=== PATIENT | male | born 1965 | race Caucasian/White ===

== ENCOUNTER 2017-02-10 19:28 | Emergency (ER) | payer MEDICAID, MEDICARE ==
[2017-02-10] MEDS ORDERED: KETOROLAC TROMETHAMINE 60 MG/2 ML VIAL IM ONE ×2 (19:49→19:56)
--- OUTSIDE RECORDS SUMMARY | 2017-02-10 19:58 | XMS REPORT | Continuity of Care Document ---
:1965 Author Organization [facility] ([facility]) Address [place] [address] Phone [phone] Care Team Providers Name Role Phone Navarro Arzola Primary Care Provider [phone] Source Comments This disclosure is being made pursuant to the Care Everywhere program, applicable federal and state laws, and may not contain all informaitonavailable regarding this patient.[facility] ([facility]) Active Allergies and Adverse Reactions Allergen Noted Date Severity Reactions Comments Bee Stings Loss of Consciousness,Respiratory Distress,Urticaria (Hives) Carbamazepine Urticaria (Hives) Current Medications Prescription Sig. Disp. Refills Start Date End Date Status albuterol (VENTOLIN use 2 Puffs by 4 g 11 02/14/2009 Active HFA) 90 mcg/Actuation inhalation every 4 inhaler hours as needed. Indications: Bronchial Asthma gabapentin take 3 Caps by mouth 3 90 Cap 5 02/14/2009 Active (NEURONTIN) 300 mg times daily. For capsule neuropathic pain, Indications: Neuropathic Pain citalopram (CELEXA) take 1 Tab by mouth 60 Tab 0 10/28/2009 Active 40 mg tablet daily. Indications: Depression hydrocodone-acetamino Take 1 Tab by mouth Active phen (VICODIN ES) every 4 hours. 7.5-750 mg per tablet Indications: Pain zolpiDEM (AMBIEN) 10 Take 10 mg by mouth at Active mg tablet bedtime as needed. diltiazem (CARDIZEM) Take 60 mg by mouth 2 Active 60 mg tablet times daily. carvedilol (COREG) Take 1 Tab by mouth 2 60 Tab 1 01/02/2012 Active 6.25 mg tablet times daily with meals. Indications: Hypertension aspirin 81 mg EC Take 81 mg by mouth Active tablet daily. Indications: Antithrombotic medication for right FA stump oxyCODONE-acetaminoph Take 1 Tab by mouth 30 Tab 0 01/18/2012 Active en 5-325 mg per every 4 hours as tablet needed. 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) 12/30/2007 Major depressive disorder, recurrent episode, severe, without mention of 10/09 psychotic behavior Other postoperative infection 09/26/2007 Depressive disorder, not elsewhere classified 09/18/2007 Pain in limb 09/07/2007 Social History Tobacco Use Types Packs/Day Years Used Date Current Every Day Smoker Cigarettes 1 35 Alcohol Use Drinks/Week oz/Week Comments Yes large amts whiskey and beer in last 16 days Last Filed Vital Signs Vital Sign Reading Time Taken Blood Pressure 160/107 01/18/2012 6:00 PM CDT Pulse 83 01/18/2012 10:53 AM CDT Temperature 36.2 C (97.2 F) 01/18/2012 3:58 PM CDT Respiratory Rate 18 01/18/2012 6:00 PM CDT Height 1.829 m (6') 01/18/2012 10:17 AM CDT Weight 91.082 kg (200 lb 12.8 oz) 01/18/2012 10:17 AM CDT Body Mass Index 27.23 01/18/2012 10:17 AM CDT Oxygen Saturation 97% 01/18/2012 4:00 PM CDT Plan of Care Health Maintenance Due Date Last Done Comments Hepatitis B Vaccine (1 of 3 - Primary Series) 1965 Tdap Vaccine 1977 MMR Vaccine 1984 Td Vaccine 1984 Pneumococcal Vaccine (1 of 1 - PPSV23) 1985 Lipid Disorder Screening 11/22/2013 11/22/2008 Colonoscopy 03/18/2016 Prostate Cancer Screening 2016 Influenza Vaccine: Seasonal (#1) 04/16/2016 Results from Last 3 Months Not on file
--- NOTE | 2017-02-10 20:03 | ERNOTE ---
Lower Extremity HPI - Narrative Date of Service: 02/10/17 - General Lower Extremities Pain: other: right - groin Time Seen by Provider: 02/10/17 19:45 Source: patient Exam Limitations: no limitations - Immun/Allergies/Home Medications Immunizations: IMMUNIZATION HX Immunizations Up to Date Yes History of Influenza Vaccine No Hx Pneumococcal Vaccination No Allergies/Adverse Reactions: Allergies Allergy/AdvReac Type Severity Reaction Status Date / Time carbamazepine [From Tegretol] Allergy Verified 04/28/16 19:52 Home Medications: HOME MEDICATIONS Albuterol Sulfate [Ventolin Hfa] 2 puff IH Q4H PRN 04/28/16 [Last Taken Unknown] Atorvastatin Calcium [Lipitor] 20 mg PO DAILY 04/28/16 [Last Taken Unknown] Carvedilol [Coreg] 6.25 mg PO BID 04/28/16 [Last Taken Unknown] Clopidogrel Bisulfate [Plavix] 75 mg PO DAILY 04/28/16 [Last Taken Unknown] Diltiazem HCl [Cardizem] 60 mg PO Q8H 04/28/16 [Last Taken Unknown] HYDROcodone/ACETAMINOPHEN [[place] 5-325 Tablet] 1 tab PO Q4H PRN 04/28/16 [Last Taken Unknown] Pantoprazole Sodium [Protonix] 40 mg PO DAILY 04/28/16 [Last Taken Unknown] Pentoxifylline [Trental] 400 mg PO TID 04/28/16 [Last Taken Unknown] Ropinirole HCl [Requip Xl] 2 mg PO TID 04/28/16 [Last Taken Unknown] Zolpidem Tartrate 10 mg PO HS 04/28/16 [Last Taken Unknown] Diazepam [Valium] 5 mg PO BID PRN #10 tab 02/10/17 [Last Taken Unknown] Lidocaine [Lidoderm 5%] 1 patch TP DAILY #30 patch 02/10/17 [Last Taken Unknown] - History of Present Illness Narrative: Pt. comes in with c/o R groin pain, B low back pain, R flank pain, that radiates down B legs. Pt. states that he has a hx of chronic pain and restless leg syndrome but states that this is different. Pt. denies any prehospital treatment, alleviating factors, aggravating factors, or SOB. Review of Systems - Review of Systems Constitutional: Present: no symptoms reported. Absent: recent illness, fever, chills, weakness, fatigue, malaise EYE: Present: no symptoms reported ENT: Present: no symptoms reported Respiratory: Present: no symptoms reported. Absent: shortness of breath, cough , wheezing Cardiology: Present: no symptoms reported. Absent: chest pain, palpitations, edema Gastrointestinal/Abdominal: Present: no symptoms reported. Absent: nausea, vomiting, diarrhea Genitourinary: Present: pain - R groin Musculoskeletal: Present: back pain - Blower back R flank, muscle pain - sharp shooting down B buttocks and legs Skin: Present: no symptoms reported Neurological: Present: no symptoms reported. Absent: headache, dizziness/light- headedness, numbness, tingling All Other Systems: All systems neg except as marked - Patient's Past Medical History Patient History - Medical: Anxiety, Depression Patient History - Cardiac/Respiratory: Asthma, COPD, Hypertension, Other Patient History - Cancer: No Hx of Cancer Patient History - Surgical Procedures: Other Patient History - Other: None - Social History Living Situations: spouse Abuse History: No History of abuse Psych History: Hx of Anxiety, Hx of Depression Smoking Status: Current every day smoker Alcohol Use: none Drug Use: none - Immunizations Immunizations Up to Date: Yes Hx Pneumococcal Vaccination: No History of Influenza Vaccine: No Physical Exam - Physical Exam General Appearance: Present: wd/wn, alert, no apparent distress Eye Exam: Normal inspection: bilateral, PERRL: bilateral, EOMI: bilateral Ears, Nose, Throat: Present: normal ENT inspection, normal pharynx Neck: Present: normal inspection, nontender. Absent: lymphadenopathy (R), lymphadenopathy (L) Respiratory: Present: no respiratory distress, normal breath sounds, no accessory muscle use, chest nontender, lungs clear Cardiovascular/Chest: Present: regular rate, rhythm, no murmur, normal peripheral pulses Gastrointestinal/Abdominal: Present: normal bowel sounds, nondistended, soft, no organomegaly, tenderness - R groin Back Exam: Present: normal range of motion, no vertebral tenderness, CVA tenderness (R) Extremity Exam: Present: normal inspection, non-tender, normal range of motion, no edema Neurological Exam: Present: alert, oriented, normal mood/affect, no motor/ sensory deficits, filler shaker II-XII nml as tested, normal cerebellar test Skin Exam: Present: normal color, warm/dry. Absent: pallor, skin rash ED Progress - Date and Time Seen: Date and Time: 02/10/17 22:[address] and xray results with pt. and feel that pt. problems stem from spine and that pt. needs to have referral to neurosurgery and he also would like referral to orthopedics for shoulder. - Results and Orders Patient's Lab Results:: I have reviewed the patient's lab results. - Vital Signs Patient's Vital Signs:: I have reviewed the patient's vital signs. Vital Signs: Vital Signs 02/10/17 19:31 Temperature 36.8 C Pulse Rate 88 Respiratory 16 Rate Blood Pressure 148/93 O2 Sat by Pulse 97 Oximetry - X-Ray X-Ray #1 X-Ray: lumbosacral Interpretation: Interp. by me X-ray Comments: degenerative changes throughout spine, no compression injuries. - CT/Ultrasound CT/Ultrasound Narrative: CT without impingement noted but with degeneration throughout spine. - Progress/Reassessment Chief Complaint: Lower Extremity Pain/ Injury Departure Clinical Impression: Disc degeneration, lumbar Sciatica Qualifiers: Laterality: right Qualified Code(s): M54.31 - Sciatica, right side - Departure Disposition: Home self-care Condition: Good Instructions: Sciatica, [id number] Additional Instructions: Please stop xanax and start vallium starting tomorrow. Please follow up with Dr Vargas at [facility] for shoulder and Dr Leon at [facility] for back at Prescriptions: Diazepam [Valium] 5 mg PO BID PRN #10 tab PRN Reason: Anxiety Lidocaine [Lidoderm 5%] 1 patch TP DAILY #30 patch
[2017-02-10 20:06] LABS: Urine Appearance Clear; Urine Bilirubin Negative (NEGATIVE); Urine Blood Negative /ul (NEGATIVE); Urine Color Yellow; Urine Ketone Negative (NEGATIVE); Urine Nitrite Negative (NEGATIVE); Urine Protein Negative (NEGATIVE); Urine Urobilinogen Normal (NORMAL); Urine WBC 0-5 /hpf (0-5)
[2017-02-10 20:07] LABS: Urine Bacteria None Seen; Urine RBC None Seen /hpf (0-5)
[2017-02-10] MEDS ORDERED: ORPHENADRINE CITRATE 30 MG/ML VIAL IM ONE (20:16)
[2017-02-10] MEDS ORDERED: ORPHENADRINE CITRATE 30 MG/ML VIAL ONE (20:21)
[2017-02-10] MEDS ORDERED: DIAZEPAM 5 MG/ML SYRG IM ONE (20:57)
[2017-02-10] MEDS ORDERED: DIAZEPAM 5 MG/ML SYRG ONE (20:59)
[2017-02-10] MEDS ORDERED: HYDROmorphone HCL 1 MG/ML DISP.SYRIN IM ONE (21:26)
[2017-02-10] MEDS ORDERED: HYDROmorphone HCL 1 MG/ML DISP.SYRIN ONE (21:28)
[2017-02-10 22:22] VITALS: BP 139/88
[2017-02-10] MEDS ORDERED: LIDOCAINE 1 PATCH ADH..PATCH TP ONE ×2 (22:32→23:30)
== END 2017-02-10 22:39 | disposition home or self-care (01) ==
LOC: ER 19:28
DX: M51.36 Other intervertebral disc degeneration, lumbar region (principal); M54.31 Sciatica, right side; I10 Essential (primary) hypertension; G25.81 Restless legs syndrome; J44.9 Chronic obstructive pulmonary disease, unspecified; J45.909 Unspecified asthma, uncomplicated; F17.200 Nicotine dependence, unspecified, uncomplicated